=== PATIENT | female | born 1940 | race Caucasian/White ===

== ENCOUNTER 2020-07-02 13:55 | Emergency (ER) | payer MEDICARE, OTHER, SELFPAY ==
[2020-07-02 14:05] VITALS: BP 175/90; PULSE 78; RESP 20; TEMP 36.6; O2SAT 96
--- NOTE | 2020-07-02 14:06 | DI.RAD.S_ITS ---
PROCEDURE: XR CHEST 1V INDICATIONS: chest pain TECHNIQUE: One view of the chest was acquired. COMPARISON: None. FINDINGS: Surgical changes and devices: None. Lungs and pleura: Lungs are clear. No pleural effusions or pneumothorax. Mediastinum: Mediastinal contours appear normal. Heart size is normal. Bones and chest wall: No suspicious bony lesions. Overlying soft tissues appear unremarkable. IMPRESSION: No acute cardiopulmonary abnormalities. Dictated by: Shane Santillan M.D. on 07/02/2020 at 13:55 Approved by: Shane Santillan M.D. on 07/02/2020 at 13:55
[2020-07-02 14:30] VITALS: BP 151/82; PULSE 78; RESP 23; O2SAT 96
[2020-07-02 14:45] LABS: Add Manual Diff / Slide Review NO; Basophils Absolute Auto 100 /uL (0-100); Eosinophils Absolute Auto 200 /uL (0-450); Hematocrit 41.5 % (36-46); Lymphocytes Absolute Auto 2400 /uL (1100-4500); Lymphocytes Percent Auto 29.6 % (25-40); Mean Corpuscular HGB Conc 33.7 % (30-36); Mean Corpuscular Hemoglobin 30.3 PG (26-34); Mean Corpuscular Volume 89.8 fL (80-100); Monocytes Absolute Auto 600 /uL (0-900); Monocytes Percent Auto 7.8 % (3-14); Neutrophils Absolute Auto 4600 /uL (1500-7000); Neutrophils Percent Auto 58.6 % (50-75); Platelet Count 247 X10^3/uL (150-400); Red Blood Cell Count 4.62 X10^6/uL (4.0-5.2); Red Cell Distribution Width 13.5 % (11.6-14.8); White Blood Cell Count 7.9 X10^3/uL (4.5-11.0)
[2020-07-02 14:48] LABS: INR 1.1 (0.9-1.3); Prothrombin Time 12.5 SECONDS (10.1-12.7)
[2020-07-02 14:50] LABS: PTT Partial Thromboplastin Tim 30 SECONDS (26.4-36.2)
[2020-07-02 14:52] LABS: Alanine Aminotransferase 20 IU/L (<35); Albumin 4.5 g/dL (3.5-5.0); Albumin Globulin Ratio 1.2 (1.0-2.8); Alkaline Phosphatase 93 U/L (38-126); Aspartate Aminotransferase 24 IU/L (14-36); BUN Creatinine Ratio 26.3 (6-22); Bilirubin Total 0.6 mg/dL (0.2-1.3); Blood Urea Nitrogen 26 mg/dL (7-17); Calcium 9.5 mg/dL (8.4-10.2); Carbon Dioxide 20 mmol/L (22-32); Chloride 109 mmol/L (98-107); Creatine Kinase 37 U/L (30-135); Estimated Glomerular Filt Rate 54.2 mL/min (>60); Globulin 3.8 g/dL (1.7-4.1); Glucose 145 mg/dL (80-110); HEMOLYSIS 24 (0-50); Lipase 212 U/L (23-300); Potassium 4.3 mmol/L (3.4-5.1); Sodium 140 mmol/L (137-145); Total Protein 8.3 g/dL (6.3-8.2)
[2020-07-02 15:00] VITALS: BP 145/81; PULSE 81; RESP 25; O2SAT 96
--- NOTE | 2020-07-02 15:02 | ED.CHESTPAIN ---
HPI - Chest Pain General Chief Complaint: Chest Pain Stated Complaint: Chest pain started yesterday afternoon Time Seen by Provider: 07/02/20 13:57 Source: patient and family Mode of arrival: Family Vehicle Limitations: no limitations History of Present Illness HPI narrative: 80-year-old female here for evaluation of pinpoint right-sided chest pain. She states that it started yesterday. It seems to come go however has never completely resolved. She states she can put her finger on it and make it worse. She does have a history of coronary artery disease and has had stents placed in the past. She denies any other associated symptoms. Was evaluated by EMS this morning however arrived to the emergency department by private vehicle. Related Data Home Medications Medication Instructions Recorded Confirmed Fish Oil (#FISH OIL) 1,200 mg PO BID #0 03/03/12 cholecalciferol (vitamin D3) 1,000 unit PO QDAY #0 09/11/16 [Vitamin D3] multivitamin [Multiple Vitamins] 1 tab PO QDAY #0 09/11/16 Previous Rx's Medication Instructions Recorded amlodipine [Norvasc] 5 mg PO QDAY #30 tab 06/19/16 pravastatin 20 mg PO HS #90 tab 09/03/16 ezetimibe [Zetia] 0 PO Q DAY #90 tab 09/11/16 losartan [Cozaar] 50 mg PO BID #180 tab 02/18/17 isosorbide mononitrate 30 mg PO QAM #90 tab 02/27/17 metformin [Glucophage] 500 mg PO BID #180 tab 02/27/17 carvedilol [Coreg] 25 mg PO BID #180 tab 04/15/17 Allergies Allergy/AdvReac Type Severity Reaction Status Date / Time THO Inhibitors Allergy Intermediate CONSTANT Unverified 12/04/17 11:52 [THO INHIBITORS] COUGH [id number]-[id number]-Edd Reductase Allergy Intermediate leg cramps Unverified 12/04/17 11:52 Inhibitor [[id number] REDUCTASE INHIBITOR] COCONUT/PALM OILS Allergy Intermediate HIVES, Uncoded 12/04/17 11:52 ITCHING Review of Systems Constitutional Constitutional: Denies fever(s) and Denies headache(s) ENT Ears, Nose, Mouth, and Throat: Denies headache(s) Cardiovascular Cardiovascular: Reports chest pain, Denies rapid heart rate and Denies dyspnea Respiratory Respiratory: Denies cough and Denies dyspnea Gastrointestinal Gastrointestinal: Denies abdominal pain, Denies nausea and Denies vomiting Genitourinary Genitourinary: Denies dysuria Genitourinary: Denies dysuria Musculoskeletal Musculoskeletal: Denies back pain Integumentary/Breasts Skin/Breast: Denies rash Neurologic Neurologic: Denies behavioral changes and Denies headache(s) Psychiatric Psychiatric: Denies behavioral changes Hematologic/Lymphatic Hematologic/Lymphatic: Denies easy bleeding and Denies easy bruising Allergic/Immunologic Allergic/Immunologic: Denies urticaria Patient History Medical History Coronary artery disease involving [place] coronary artery of che[place]vi heart without angina pectoris (09/20/15) Esophagitis determined by biopsy (07/18/16) Essential hypertension (09/20/15) Hypertriglyceridemia (07/16/16) Mixed hyperlipidemia (09/20/15) Obstructive sleep apnea syndrome (09/20/15) Primary osteoarthritis of both hips (09/20/15) Thrombocytopenia (10/10/16) Type 2 diabetes mellitus without complication (09/20/15) Family History (Updated 12/31/15 @ 00:00 by Conversion Provider) Father Diabetes mellitus Heart disease Hypertension High cholesterol Mother Cancer Heart disease Hypertension High cholesterol Sister Age: 66 Diabetes mellitus Hypertension Sister Age: 73 Diabetes mellitus Heart disease Hypertension Social History Smoking Status: Former smoker Smoking Status: Former smoker tobacco type: cigarettes alcohol intake frequency: holidays/special occasions only Substance Use Type: does not use Exam Initial Vital Signs Initial Vital Signs: Vital Signs Temperature 97.9 F 07/02/20 14:05 Pulse Rate 78 07/02/20 14:05 Respiratory Rate 20 07/02/20 14:05 Blood Pressure 175/90 H 07/02/20 14:05 Pulse Oximetry 96 07/02/20 14:05 Const General: cooperative, comfortable and well developed Limitations: mental status not altered [facility] Head: normal to inspection and normocephalic Chest Chest: tenderness (Pinpoint tenderness right midclavicular line approximately 4th intercostal ) Resp Effort & Inspection: normal respiratory effort Auscultation: clear to auscultation bilaterally Cardio Rate: regular rate Rhythm: regular rhythm GI Inspection: non-distended Palpation: soft Skin Lesions: no lesions Rashes: no rashes Neuro General: patient alert and patient awake Cognition: normal cognition Speech: speech normal Extrem General: normal to inspection and capillary refill normal Psych Appearance: grossly normal and well kempt Scores GCS [place] coma scale eye opening: Spontaneous [place] coma scale verbal response: Orientated [place] coma scale motor response: Obey commands [place] coma scale total score: 15 Course Orders Ordered: ED Orders 07/02/20 14:06 XR chest 1V Stat EKG-12 Lead Stat 07/02/20 14:34 Complete Blood Count AUTO DIFF Stat Comprehensive Metabolic Panel Stat Lipase Stat Partial Thromboplastin Time Stat Prothrombin Time INR Stat Troponin & CK Cardiac Panel Stat Vital Signs Vital signs: Vital Signs - 8 hr 07/02/20 14:05 07/02/20 14:30 07/02/20 15:00 Temperature 97.9 F Pulse Rate 78 78 81 Respiratory Rate 20 23 25 H Blood Pressure 175/90 H 151/82 H 145/81 H Pulse Oximetry 96 96 96 MDM - Chest Pain Lab Data Attestation: I reviewed the patient's lab results. Result diagrams: 07/02/20 14:34 07/02/20 14:34 Labs: Lab Results 07/02/20 07/02/20 07/02/20 Range/Units 14:34 14:34 14:34 WBC 7.9 (4.5-11.0) X10^3/uL RBC 4.62 (4.0-5.2) X10^6/uL Hgb 14.0 (12.0-16.0) g/dL Hct 41.5 (36-46) % MCV 89.8 (80-100) fL MCH 30.3 (26-34) PG MCHC 33.7 (30-36) % RDW 13.5 (11.6-14.8) % Plt Count 247 (150-400) X10^3/uL Neut % (Auto) 58.6 (50-75) % Lymph % (Auto) 29.6 (25-40) % [place] % (Auto) 7.8 (3-14) % Eos % (Auto) 3.0 (2-4) % Baso % (Auto) 1.0 (0-2) % Neut # (Auto) 4600 (5961-1548) /uL Lymph # (Auto) 2400 (5295-6872) /uL [place] # (Auto) 600 (0-900) /uL Eos # (Auto) 200 (0-450) /uL Baso # (Auto) 100 (0-100) /uL PT 12.5 (10.1-12.7) SECONDS INR 1.1 (0.9-1.3) APTT 30 (26.4-36.2) SECONDS Sodium 140 (137-145) mmol/L Potassium 4.3 (3.4-5.1) mmol/L Chloride 109 H (98-107) mmol/L Carbon Dioxide 20 L (22-32) mmol/L BUN 26 H (7-17) mg/dL Creatinine 0.99 (0.52-1.04) mg/dL Estimated GFR 54.2 L (>60) mL/min BUN/Creatinine Ratio 26.3 H (6-22) Glucose 145 H (80-110) mg/dL Calcium 9.5 (8.4-10.2) mg/dL Total Bilirubin 0.6 (0.2-1.3) mg/dL AST 24 (14-36) IU/L ALT 20 (<35) IU/L Alkaline Phosphatase 93 (38-126) U/L Total Creatine Kinase 37 (30-135) U/L CK-MB (CK-2) TNP CK-MB (CK-2) Rel Index TNP Troponin I < 0.012 (0.01-0.034) ng/mL Total Protein 8.3 H (6.3-8.2) g/dL Albumin 4.5 (3.5-5.0) g/dL Globulin 3.8 (1.7-4.1) g/dL Albumin/Globulin Ratio 1.2 (1.0-2.8) Lipase 212 (23-300) U/L Imaging Data Chest x-ray: Radiologist's Impression: [address] [id number] XRay Report Signed Patient: Susy Anderson EMR#: [id number] : 2Acct:[id number] Age/Sex: 80 / FDate of Service: 07/02/20 Loc: ED Accession Number: [id number] Procedure: XR chest 1V Ordering Provider: Jt Porter D.O. PROCEDURE: XR CHEST 1V INDICATIONS: chest pain TECHNIQUE: One view of the chest was acquired. COMPARISON: None. FINDINGS: Surgical changes and devices: None. Lungs and pleura: Lungs are clear. No pleural effusions or pneumothorax. Mediastinum: Mediastinal contours appear normal. Heart size is normal. Bones and chest wall: No suspicious bony lesions. Overlying soft tissues appear unremarkable. IMPRESSION: No acute cardiopulmonary abnormalities. Dictated by: Shane Santillan M.D. on 07/02/2020 at 13:55 Approved by: Shane Santillan M.D. on 07/02/2020 at 13:55 ECG Data Attestation: I personally reviewed and interpreted this ECG as follows: Prior ECG tracings: not available for review Interpretation: Sinus bradycardia Ventricular rate of 48 Occasional PVC Normal QRS Normal QTC No ST T wave changes MDM Narrative Medical decision making narrative: Patient has definitive reproducible pinpoint right-sided localized chest discomfort. Her chest x-ray is negative. Troponins are negative. I have low suspicion for ACS. Her skin is unchanged. Suspect musculoskeletal. We did discuss return precautions and follow-up instructions. Patient expressed understanding agreement. Discharge Plan Departure Patient Disposition: Home Clinical Impression: Acute chest wall pain Instructions: DI for Atypical Chest Pain Activity Restrictions/Additional Instructions: Recommend you continue all of your medications as directed. Contact your primary provider for follow-up. Return to the emergency department for any new or worsening symptoms Prescriptions: No Action Fish Oil (#FISH OIL) 1,200 mg PO BID Qty: 0 RF: 0 amlodipine [Norvasc] 5 MG tablet 5 mg PO QDAY Qty: 30 RF: 2 pravastatin 20 MG tablet 20 mg PO HS Qty: 90 RF: 0 multivitamin [Multiple Vitamins] 1 EACH tablet 1 tab PO QDAY Qty: 0 RF: 0 cholecalciferol (vitamin D3) [Vitamin D3] 1,000 UNIT tablet 1,000 unit PO QDAY Qty: 0 RF: 0 ezetimibe [Zetia] 10 MG tablet 0 PO Q DAY Qty: 90 RF: 1 losartan [Cozaar] 50 MG tablet 50 mg PO BID Qty: 180 RF: 1 metformin [Glucophage] 500 MG tablet 500 mg PO BID Qty: 180 RF: 1 isosorbide mononitrate 30 MG tablet extended release 24 hr 30 mg PO QAM Qty: 90 RF: 1 carvedilol [Coreg] 25 MG tablet 25 mg PO BID Qty: 180 RF: 1 Referrals: Munir Nolan MD [Primary Care Provider] -
[2020-07-02 15:04] LABS: Troponin I < 0.012 ng/mL (0.01-0.034)
[2020-07-02 15:30] VITALS: PULSE 73; RESP 18; O2SAT 96
[2020-07-02 15:31] VITALS: BP 130/63; PULSE 75; RESP 22; O2SAT 95
== END 2020-07-02 15:54 | disposition home or self-care (01) ==
PROVIDERS: Emergency Provider Emergency Medicine; Family Provider Family Medicine; PCP Family Medicine
DX: R07.89 Other chest pain (principal); R00.1 Bradycardia, unspecified
CPT/HCPCS: 36415; 71045; 80053; 82550; 83690; 84484; 85025; 85610; 85730; 93005; 99283; 99284